=== PATIENT | male | born 2000 | race Caucasian/White ===

== ENCOUNTER 2019-05-21 01:07 | Inpatient (IN) | payer BC ==
[2019-05-21] MEDS ORDERED: IPRATROPIUM-ALBUTEROL 3 ML NEB INHALATION STA (01:25)
[2019-05-21] MEDS ORDERED: methylPREDNISolone SOD SUCCI 125 MG/2 ML VIAL IV STA (01:26)
[2019-05-21] MEDS ORDERED: MAGNESIUM SULFATE-D5W PMX 1 GM in DEXTROSE/WATER 1 100ML.BAG IVPB ONE (01:26)
[2019-05-21] MEDS ORDERED: SODIUM CHLORIDE 0.9% 500 ML 500 ML IV STA (01:28)
[2019-05-21 01:55] LABS: Basophils # (A) 0.1 k/uL (0-0.2); Basophils % (A) 1 %; Eosinophils % (A) 6 %; HCT 48.5 % (39.0-53.0); HGB 16.8 gm/dL (13.0-17.5); Lymphocytes # (A) 2.1 k/uL (1.0-4.8); Lymphocytes % (A) 13 %; MCH 29.7 pg (25.0-35.0); MCHC 34.6 g/dL (31.0-37.0); MCV 85.9 fL (80.0-100.0); Monocytes # (A) 0.8 k/uL (0-1.0); Monocytes % (A) 5 %; Neutrophils # (A) 11.7 k/uL (1.3-7.7); Neutrophils % (A) 74 %; Platelet Count 263 k/uL (150-450); RBC 5.65 m/uL (4.30-5.90); RDW 12.5 % (11.5-15.5); WBC 15.9 k/uL (4.0-11.0)
[2019-05-21] MEDS ORDERED: ALBUTEROL NEBULIZED 2.5 MG/3 ML INHALATION STA (02:01)
--- NOTE | 2019-05-21 02:11 | XR ---
EXAMINATION TYPE: XR chest 2V DATE OF EXAM: 05/21/2019 COMPARISON: NONE HISTORY: Cough TECHNIQUE: 2 views FINDINGS: Heart and mediastinum are normal. There is 2 cm density over the heart on the lateral view that apparently is at the posterior right cardiac border. Clinical significance is not clear. The oth er lung esquivel are clear. Bony thorax is intact. IMPRESSION: Density adjacent to the posterior right cardiac border of uncertain significance. This co uld be a small pneumonic infiltrate.
[2019-05-21 02:12] LABS: ALT 26 U/L (4-49); AST 30 U/L (17-59); African American GFR (CKD) >90 (>60 ml/min/1.73 sqM); Albumin 5.1 g/dL (3.5-5.0); Alkaline Phosphatase 52 U/L (38-126); Anion Gap 11 mmol/L; Blood Urea Nitrogen 10 mg/dL (9-20); Calcium 9.9 mg/dL (8.4-10.2); Carbon Dioxide 28 mmol/L (22-30); Chloride 106 mmol/L (98-107); Glucose 90 mg/dL (74-99); Non-African American GFR(CKD) >90 (>60 ml/min/1.73 sqM); Potassium 3.7 mmol/L (3.5-5.1); Sodium 145 mmol/L (137-145); Total Bilirubin 0.7 mg/dL (0.2-1.3); Total Protein 7.9 g/dL (6.3-8.2)
[2019-05-21] MEDS ORDERED: AZITHROMYCIN 500 MG in SODIUM CHLORIDE 0.9% 250 ML IVPB STA (02:18)
--- NOTE | 2019-05-21 02:56 | ED ---
General Adult HPI - General Source: patient, RN notes reviewed, old records reviewed Mode of arrival: ambulatory Limitations: no limitations <Aquiles Bauman - Last Filed: 05/21/19 02:52> <Jaquelin Arceo - Last Filed: 05/21/19 05:49> - General Chief complaint: Shortness of Breath Stated complaint: asthma Time Seen by Provider: 05/21/19 01:22 - History of Present Illness Initial comments: 19-year-old male patient past history significant for severe asthma presents to ED for chief complaint 2 days of asthma exacerbation. Reports that he has been using an inhaler which has not helped, states that he is visiting from [place] did not bring his nebulizer. Reports the symptoms. Identical to previous asthm a exacerbation, denies any other complaints. Patient does report that he was intubated as recently as 2 years ago for his asthma. Systemic: Pt denies fatigue, fever/chills, rash. Pt denies weakness, night sweats, weight loss. Neuro: Pt denies headache, visual disturbances, syncope or pre-syncope. HEENT: Pt denies ocular discharge or irritation, otalgia, rhinorrhea, pharyngitis or notable lymphadenopathy. Cardiopulmonary: Pt denies chest pain, heart palpitations, dyspnea on exertion. Abdominal/GI: Pt denies abdominal pain, n/v/d. : Pt denies dysuria, burning w/ urination, frequency/urgency. Denies new onset urinary or bowel incontinence. MSK: Pt denies myalgia, loss of strength or function in extremities. Neuro: Pt denies new onset weakness, paresthesias. (Aquiles Bauman) - Related Data Allergies Allergy/AdvReac Type Severity Reaction Status Date / Time No Known Allergies Allergy Verified 05/21/19 01:21 Review of Systems ROS Other: All systems not noted in ROS Statement are negative. <Aquiles Bauman - Last Filed: 05/21/19 02:52> ROS Other: All systems not noted in ROS Statement are negative. <Jaquelin Arceo - Last Filed: 05/21/19 05:49> ROS Statement: Those systems with pertinent positive or pertinent negative responses have been documented in the HPI. Past Medical History Past Medical History: Asthma History of Any Multi-Drug Resistant Organisms: None Reported Past Surgical History: No Surgical Hx Reported Past Psychological History: No Psychological Hx Reported Smoking Status: Never smoker Past Alcohol Use History: Occasional Past Drug Use History: Marijuana <Aquiles Bauman - Last Filed: 05/21/19 02:52> General Exam Limitations: no limitations <Aquiles Bauman - Last Filed: 05/21/19 02:52> - General Exam Comments Initial Comments: Constitutional: NAD, AOX3, Pt has pleasant affect. HEENT: NC/AT, trachea midline, neck supple, no lymphadenopathy. Posterior pharynx non erythematous, without exudates. External ears appear normal, without discharge. Mucous membranes moist. Eyes PERRLA, EOM intact. There is no scleral icterus. No pallor noted. Cardiopulmonary: RRR, no murmurs, rubs or gallops, no JVD noted. Significant wheezing noted in anterior posterior esquivel. Upon initial evaluation patient is not moving adequate air. Significantly improved after breathing treatments, however wheezing remains. . No peripheral edema. Abdominal exam: Abdomen soft and non-distended. Abdomen non-tender to palpation in all 4 quadrants. Bowel sounds active in LLQ. No hepatosplenomegaly. No ecchymosis Neuro: CN II-XII grossly intact. No nuchal rigidity. No raccon eyes, no becerra sign, no hemotympanum. No cervical spinal tenderness. MSK: No posterior calf tenderness bilaterally, homans sign negative bilaterally. Posterior tibialis and radial pulse +2 bilaterally. Sensation intact in upper and lower extremities. Full active ROM in upper and lower extremities, 5/5 stregnth. (Aquiles Bauman) Course Vital Signs 05/21/19 05/21/19 05/21/19 01:17 01:34 01:53 Temperature 97.8 F Pulse Rate 127 H 117 H 120 H Respiratory 24 Rate Blood Pressure 162/82 O2 Sat by Pulse 96 Oximetry 05/21/19 05/21/19 02:27 02:38 Temperature Pulse Rate 115 H 115 H Respiratory Rate Blood Pressure O2 Sat by Pulse Oximetry Medical Decision Making - Lab Data Result diagrams: 05/21/19 01:39 05/21/19 01:39 <Aquiles Bauman - Last Filed: 05/21/19 02:52> - Lab Data Result diagrams: 05/21/19 01:39 05/21/19 01:39 <Jaquelin Arceo - Last Filed: 05/21/19 05:49> - Medical Decision Making 19-year-old male patient with significant asthma history density for 2 days of asthma exacerbation. Patient vital signs displayed tachycardia. Oxygen sauration 96%. Physical exam displayed: Significant wheezing noted in anterior posterior esquivel. Upon initial evaluation patient is not moving adequate air. Significantly improved after breathing treatments, however wheezing remains. . No peripheral edema. Chest x-ray displayed density adjacent to the posterior right cardiac border of uncertain significance, could be small pneumonic infiltrate. Patient initiated on azithromycin. O2 investigations are also displayed a leukocytosis with a left shift, influenza negative. Patient will be admitted for asthma exacerbation. Case discussed with Dr. Arceo. (Aquiles Bauman) I saw and evaluated the patient upon arrival. Patient's a 19-year-old with moderate to severe asthma with hospitalizations and intubations in the past. Patient in moderate respiratory distress upon arrival. Patient's to Neck tachycardic wheezing in all lung esquivel. Double DuoNeb treatment steroids and magnesium were ordered. Patient's condition improved while in the emergency department he didn't require BiPAP, chest x-ray was concerning for possible early pneumonia antibiotics were initiated patient was admitted for possible pneumonia and asthma exacerbation. (Jaquelin Arceo) - Lab Data Lab Results 05/21/19 05/21/19 05/21/19 Range/Units 01:39 01:39 01:39 WBC 15.9 H (4.0-11.0) k/uL RBC 5.65 (4.30-5.90) m/uL Hgb 16.8 (13.0-17.5) gm/dL Hct 48.5 (39.0-53.0) % MCV 85.9 (80.0-100.0) fL MCH 29.7 (25.0-35.0) pg MCHC 34.6 (31.0-37.0) g/dL RDW 12.5 (11.5-15.5) % Plt Count 263 (150-450) k/uL Neutrophils % 74 % Lymphocytes % 13 % Monocytes % 5 % Eosinophils % 6 % Basophils % 1 % Neutrophils # 11.7 H (1.3-7.7) k/uL Lymphocytes # 2.1 (1.0-4.8) k/uL Monocytes # 0.8 (0-1.0) k/uL Eosinophils # 1.0 H (0-0.7) k/uL Basophils # 0.1 (0-0.2) k/uL Sodium 145 (137-145) mmol/L Potassium 3.7 (3.5-5.1) mmol/L Chloride 106 (98-107) mmol/L Carbon Dioxide 28 (22-30) mmol/L Anion Gap 11 mmol/L BUN 10 (9-20) mg/dL Creatinine 0.75 (0.66-1.25) mg/dL Est GFR (CKD-EPI)AfAm >90 (>60 ml/min/1.73 sqM) Est GFR (CKD-EPI)NonAf >90 (>60 ml/min/1.73 sqM) Glucose 90 (74-99) mg/dL Calcium 9.9 (8.4-10.2) mg/dL Total Bilirubin 0.7 (0.2-1.3) mg/dL AST 30 (17-59) U/L ALT 26 (4-49) U/L Alkaline Phosphatase 52 (38-126) U/L Total Protein 7.9 (6.3-8.2) g/dL Albumin 5.1 H (3.5-5.0) g/dL Influenza Type A RNA Not Detected (Not Detectd) Influenza Type B (PCR) Not Detected (Not Detectd) Disposition Is patient prescribed a controlled substance at d/c from ED?: No <Aquiles Bauman - Last Filed: 05/21/19 02:52> <Jaquelin Arceo - Last Filed: 05/21/19 05:49> Clinical Impression: Asthma exacerbation Disposition: ADMITTED IP TO THIS HOSP Condition: Serious
[2019-05-21] MEDS: methylPREDNISolone SOD SUCCI 125 MG/2 ML VIAL IV SCH ×4 (04:03→21:45)
--- NOTE | 2019-05-21 05:19 | ED ---
Medical Decision Making - Lab Data Result diagrams: 05/21/19 01:39 05/21/19 01:39 Lab Results 05/21/19 05/21/19 05/21/19 Range/Units 01:39 01:39 01:39 WBC 15.9 H (4.0-11.0) k/uL RBC 5.65 (4.30-5.90) m/uL Hgb 16.8 (13.0-17.5) gm/dL Hct 48.5 (39.0-53.0) % MCV 85.9 (80.0-100.0) fL MCH 29.7 (25.0-35.0) pg MCHC 34.6 (31.0-37.0) g/dL RDW 12.5 (11.5-15.5) % Plt Count 263 (150-450) k/uL Neutrophils % 74 % Lymphocytes % 13 % Monocytes % 5 % Eosinophils % 6 % Basophils % 1 % Neutrophils # 11.7 H (1.3-7.7) k/uL Lymphocytes # 2.1 (1.0-4.8) k/uL Monocytes # 0.8 (0-1.0) k/uL Eosinophils # 1.0 H (0-0.7) k/uL Basophils # 0.1 (0-0.2) k/uL Sodium 145 (137-145) mmol/L Potassium 3.7 (3.5-5.1) mmol/L Chloride 106 (98-107) mmol/L Carbon Dioxide 28 (22-30) mmol/L Anion Gap 11 mmol/L BUN 10 (9-20) mg/dL Creatinine 0.75 (0.66-1.25) mg/dL Est GFR (CKD-EPI)AfAm >90 (>60 ml/min/1.73 sqM) Est GFR (CKD-EPI)NonAf >90 (>60 ml/min/1.73 sqM) Glucose 90 (74-99) mg/dL Calcium 9.9 (8.4-10.2) mg/dL Total Bilirubin 0.7 (0.2-1.3) mg/dL AST 30 (17-59) U/L ALT 26 (4-49) U/L Alkaline Phosphatase 52 (38-126) U/L Total Protein 7.9 (6.3-8.2) g/dL Albumin 5.1 H (3.5-5.0) g/dL Influenza Type A RNA Not Detected (Not Detectd) Influenza Type B (PCR) Not Detected (Not Detectd) - EKG Data -: EKG Interpreted by Me (and Dr. Arceo) EKG Comments: Ventricular 104, CO interval 148, QRS 98, QT/QTC 364/478. Sinus tachycardia, otherwise normal EKG, no concern for acute ischemia this time. Disposition Clinical Impression: Asthma exacerbation Disposition: ADMITTED IP TO THIS HOSP Condition: Serious Is patient prescribed a controlled substance at d/c from ED?: No
[2019-05-21] MEDS: ALBUTEROL NEBULIZED 2.5 MG/3 ML INHALATION SCH ×4 (07:54→18:59)
--- NOTE | 2019-05-21 13:58 | P.HPIM ---
History of Present Illness This is a pleasant 19 years old male with past medical history of asthma, presents with shortness of breath and dyspnea on cough with phlegm, antrum of the color for 1-2 days duration. Patient originally from [place] he was is no friends with her cats in the house no smoking marijuana with them, he said getting dyspneic Wednesday through Wednesday when he came to emergency room. Patient is mildly tachycardic. His labs showing WBC of 15.9 K, rest of labs are unremarkable. Influenza is negative. EKG showed sinus tachycardia at 104. Chest x-ray per radiology shows 2 cm density close to the right heart border suspicious for pneumonia. Patient was admitted and started on a bronchodilator, steroids and Zithromax. Currently patient feels much better with quite breathing, does not need oxygen. Cough subsided. Review of Systems CONSTITUTIONAL: No fever, no malaise, no fatigue. HEENT: No recent visual problems or hearing problems. Denied any sore throat. CARDIOVASCULAR: No orthopnea, PND, no palpitations, no syncope. PULMONARY: no hemoptysis. GASTROINTESTINAL: No diarrhea, no nausea, no vomiting, no abdominal pain. Normoactive bowel sounds. NEUROLOGICAL: No headaches, no weakness, no numbness. HEMATOLOGICAL: Denies any bleeding or petechiae. GENITOURINARY: Denies any burning micturition, frequency, or urgency. MUSCULOSKELETAL/RHEUMATOLOGICAL: Denies any joint pain, swelling, or any muscle pain. ENDOCRINE: Denies any polyuria or polydipsia. Past Medical History Past Medical History: Asthma History of Any Multi-Drug Resistant Organisms: None Reported Past Surgical History: No Surgical Hx Reported Past Psychological History: No Psychological Hx Reported Smoking Status: Never smoker Past Alcohol Use History: Occasional Past Drug Use History: Marijuana Medications and Allergies Home Medications Medication Instructions Recorded Confirmed Type Fluticasone/Salmeterol [Advair Hfa 1 puff INHALATION RT-BID 05/21/19 05/21/19 History 115-21 Mcg Inhaler] diphenhydrAMINE HCL [Benadryl] 25 mg PO ONCE PRN 05/21/19 05/21/19 History Allergies Allergy/AdvReac Type Severity Reaction Status Date / Time No Known Allergies Allergy Verified 05/21/19 09:22 Physical Exam Vitals: Vital Signs Temp Pulse Resp BP Pulse Ox 05/21/19 11:33 76 16 115/74 99 05/21/19 11:13 100 05/21/19 11:03 102 H 05/21/19 08:04 107 H 05/21/19 07:54 114 H 05/21/19 07:20 76 16 101/59 99 05/21/19 05:56 110 H 18 120/71 97 05/21/19 05:00 116 H 19 117/72 97 05/21/19 04:00 115 H 18 113/62 97 05/21/19 03:00 112 H 19 134/79 96 05/21/19 02:38 115 H 05/21/19 02:27 115 H 05/21/19 02:00 110 H 18 110/85 97 05/21/19 01:53 120 H 05/21/19 01:34 117 H 05/21/19 01:17 97.8 F 127 H 24 162/82 96 Intake and Output 05/20/19 05/21/19 05/21/19 22:59 06:59 14:59 Other: Weight 61.235 kg GENERAL: The patient is alert and oriented x3, not in any acute distress. Well developed, well nourished. HEENT: Pupils are round and equally reacting to light. EOMI. No scleral icterus. No conjunctival pallor. Normocephalic, atraumatic. No pharyngeal erythema. No thyromegaly. CARDIOVASCULAR: S1 and S2 present. No murmurs, rubs, or gallops. -PULMONARY: Chest is clear to auscultation, bilateral expiratory wheezing ABDOMEN: Soft, nontender, nondistended, normoactive bowel sounds. No palpable organomegaly. MUSCULOSKELETAL: No joint swelling or deformity. EXTREMITIES: No cyanosis, clubbing, or pedal edema. NEUROLOGICAL: Gross neurological examination did not reveal any focal deficits. SKIN: No rashes. No petechiae Results CBC & Chem 7: 05/21/19 01:39 05/21/19 01:39 Labs: Abnormal Lab Results - Last 24 Hours (Table) 05/21/19 05/21/19 Range/Units 01:39 01:39 WBC 15.9 H (4.0-11.0) k/uL Neutrophils # 11.7 H (1.3-7.7) k/uL Eosinophils # 1.0 H (0-0.7) k/uL Albumin 5.1 H (3.5-5.0) g/dL Assessment and Plan Assessment: Acute asthma exacerbation 2 cm density in the chest x-ray, patient was informed with its with recommendation for follow-up Marijuana abuse, patient consult Plan: This is a pleasant 19 years old male who presents with acute asthma exacerbation and possible density in the chest x-ray. Continue with Solu-Medrol, Procrit dilator, oxygen as needed . Pulmonary consult from eating. Labs and medication were reviewed.. Continue same treatment. Continue with symptomatic treatment. Resume home medication. Monitor lytes and vitals. DVT and GI prophylaxis. Further recommendations of the clinical course of the patie nt DVT prophylaxis: Low risk, no need for subcu heparin GI Prophylaxis: Pepcid Prognosis is guarded
[2019-05-21] MEDS: SYMBICORT 160-4.5 MCG INHALER INHALATION SCH (18:59)
[2019-05-22 03:05] VITALS: TEMP 98.3
[2019-05-22] MEDS: methylPREDNISolone SOD SUCCI 125 MG/2 ML VIAL IV SCH ×2 (03:06→08:53)
[2019-05-22 07:55] VITALS: BP 113/63; RESP 17
[2019-05-22 08:08] LABS: Basophils % (A) 0 %; Eosinophils % (A) 0 %; HCT 45.2 % (39.0-53.0); HGB 15.7 gm/dL (13.0-17.5); Lymphocytes # (A) 1.2 k/uL (1.0-4.8); Lymphocytes % (A) 8 %; MCH 30.1 pg (25.0-35.0); MCHC 34.8 g/dL (31.0-37.0); MCV 86.6 fL (80.0-100.0); Mean Platelet Volume 8.9; Monocytes # (A) 0.4 k/uL (0-1.0); Monocytes % (A) 2 %; Neutrophils # (A) 13.1 k/uL (1.3-7.7); Neutrophils % (A) 89 %; Platelet Count 284 k/uL (150-450); RBC 5.22 m/uL (4.30-5.90); RDW 12.5 % (11.5-15.5); WBC 14.7 k/uL (4.0-11.0)
[2019-05-22] MEDS: ALBUTEROL NEBULIZED 2.5 MG/3 ML INHALATION SCH ×2 (09:28→12:48)
[2019-05-22] MEDS: SYMBICORT 160-4.5 MCG INHALER INHALATION SCH (09:29)
[2019-05-22 13:02] VITALS: PULSE 112
[2019-05-22] MEDS ORDERED: AZITHROMYCIN 250 MG TAB PO SCH (13:30)
--- NOTE | 2019-05-22 21:17 | CONS ---
CONSULTATION This is a pulmonary/critical care progress. DATE OF CONSULTATION: May 22, 2019 HISTORY OF PRESENT ILLNESS: This is a very pleasant 19-year-old male who typically lives in [place]. He drove down from [place] to visit some friends here in [place]. He states that he normally is treated for his asthma with rescue inhaler, he also uses Advair, 500/50, one puff twice a day. He has not been using his Advair for about a month or so. Unfortunately, when he got down here, he spent some time with his friend who smokes cigarettes and also who had a cat and both of those things tend to trigger his asthma. He developed a severe asthma attack not controlled by his usual medications including the rescue inhaler. He also tried some Benadryl. Despite that, he continued to get worse and ended up coming into the emergency room on May 21 where he was seen and admitted. He came with acute asthma exacerbation. Today he is feeling much better. He states his asthma is under much better control. Here, he received steroids, breathing treatments, etc. The patient does typically see a doctor in [place] for his asthma. He cannot remember the doctor's name. Used to see a security associate. Anyway, the patient states he is doing much better. Denies any significant fever or chills. Denies any chest pain or chest discomfort. Not coughing up much or any phlegm. No nausea, vomiting, diarrhea. No genitourinary complaints. MEDICAL HISTORY: Only asthma. SURGICAL HISTORY: None. SOCIAL HISTORY: Negative tobacco use. Denies alcohol use to any great extent other than socially. Does use marijuana occasionally. FAMILY HISTORY: Noncontributory. Mother and father were healthy. ALLERGIES: Denied. MEDICATIONS: His outpatient medications as I mentioned, include: 1. Advair Diskus 500/50 one puff twice a day. 2. Albuterol inhaler. REVIEW OF SYSTEMS: CONSTITUTIONAL negative. NEUROLOGIC negative. HEENT negative. CARDIOVASCULAR negative. PULMONARY: Shortness of breath, chest tightness, wheezing, cough secondary to both tobacco use by a friend and also of exposure to cats. GI negative. negative. RHEUMATOLOGIC negative. IMMUNOLOGIC negative ENDOCRINOLOGIC negative. DERMATOLOGIC negative. PHYSICAL EXAMINATION: VITAL SIGNS: Current vital signs are reviewed. His temperature is 98.3. Heart rate 74, respiratory rate 17, blood pressure 113/63 and room air saturation 95%. GENERAL: Appears in no acute distress. No audible wheezing, use of accessory muscles or conversational dyspnea. HEENT examination is grossly unremarkable. Mucous membranes are moist. No oral lesions. NECK: Supple. Full range of motion. No adenopathy or thyromegaly. Neck veins are flat. CARDIOVASCULAR examination reveals regular rhythm and rate. S1, S2 normal. No S3, S4, or murmur. LUNGS: A few scattered expiratory rhonchi. He is mildly bronchospastic. There are some mild expiratory wheezes. Breath sounds are equal bilaterally. There is prolongation on forced maneuver. Adventitious lung sounds are more prominent on forced maneuver. ABDOMEN: Soft. Bowel sounds are heard. EXTREMITIES are intact. No cyanosis, clubbing, or edema. SKIN: Without rash. NEUROLOGIC: Examination is brief but nonfocal. LABS: Reviewed. White count 14.7, hemoglobin 15.7, hematocrit 45.2, platelet count 284,000 sodium 145, potassium 3.7 chloride 106, CO2 28, anion gap 11, BUN and creatinine were 10 and 0.75. Influenza A and B studies were negative. Chest x-ray showed no acute disease. MEDICATIONS: Reviewed. He is currently on albuterol and Atrovent updrafts, Solu-Medrol, saline IV, Symbicort, and Zithromax. ASSESSMENT: Asthma exacerbation, not seemingly triggered by infection, but rather exposure to cat dander and cigarette smoke. PLAN: The patient is on appropriate medications. We will continue to follow. He needs to be restarted back on his inhaled corticosteroids/long-acting beta agonist. After he is discharged, whenever that is, he should be discharged on prednisone with a burst and taper. Typically, beginning with 40 mg for 4 days and reducing the dose by 10 mg every 4th day. He also should be discharged home on a rescue inhaler and also could be discharged home on a short course of oral antibiotics such as Zithromax 500 mg a day for 3-5 days and montelukast or Singulair 10 mg at bedtime. Additional recommendations and suggestions are forthcoming. MMODL / IJN: [id number] / MTDD
== END 2019-05-22 16:10 | disposition home or self-care (01) | DRG 203 ==
LOC: EC 01:07 → 4SSUR 03:09
PROVIDERS: ADMIT Hospitalist; ATTEND Hospitalist
DX: J45.901 Unspecified asthma with (acute) exacerbation (principal); F12.10 Cannabis abuse, uncomplicated; Z77.22 Contact with and (suspected) exposure to environmental tobacco smoke (acute) (chronic); X58.XXXA Exposure to other specified factors, initial encounter; R91.8 Other nonspecific abnormal finding of lung field
CPT/HCPCS: 36415; 71046; 80053; 85025; 87502; 93005; 94640; 94760; 96365; 96366; 96367; 96375; 99285